=== PATIENT | female | born 1975 | race Caucasian/White ===

== ENCOUNTER 2024-08-01 08:53 | Day surgery (SDC) | payer BC ==
[~2024-08-01 08:53] MED LIST: Sodium Chloride 0.9% 10 ML Syringe FLUSH PRN; Sodium Chloride 0.9% 2.5 ML Syringe FLUSH PRN; Sodium Chloride 0.9% 20 ML SDV IV PRN
[2024-08-01] MEDS: Lactated Ringers 1,000 ML IV SCH (09:26)
[2024-08-01] MEDS ORDERED: propofoL 500 MG/50 ML 50 ML ONE (10:08)
[2024-08-01] MEDS ORDERED: Lidocaine 2% 5 ML SDV ONE (10:08)
== END 2024-08-01 11:33 | disposition home or self-care (01) ==
LOC: MW.SDS 08:53
PROVIDERS: ATTEND Surgery
DX: Z12.11 Encounter for screening for malignant neoplasm of colon (principal); K20.0 Eosinophilic esophagitis; K21.9 Gastro-esophageal reflux disease without esophagitis; K44.9 Diaphragmatic hernia without obstruction or gangrene; E66.9 Obesity, unspecified; Z87.891 Personal history of nicotine dependence
CPT/HCPCS: 43239; 45378; 81025; J2704; J7120; 00813; J3490